=== PATIENT | male | born 1995 | race Caucasian/White ===

== ENCOUNTER → 2020-10-05 | Emergency (ER) | payer OTHER | END | disposition left against medical advice (07) | LOC: ER 18:26 | DX: Z53.20 Procedure and treatment not carried out because of patient's decision for unspecified reasons (principal) ==

== ENCOUNTER 2021-12-03 11:58 | Emergency (ER) | payer OTHER ==
[~2021-12-03] VITALS: Ht 172.7 cm; Wt 66.2 kg
== END 2021-12-03 22:28 | disposition home or self-care (01) ==
LOC: ER 11:58
DX: R53.81 Other malaise (principal); Z20.822 Contact with and (suspected) exposure to COVID-19